=== PATIENT | female | born 2005 | race Caucasian/White ===

== ENCOUNTER 2023-12-10 16:11 | Emergency (ER) | payer BC | END 2023-12-10 17:01 | disposition home or self-care (01) | LOC: CSHERS 16:11 | DX: S01.312D Laceration without foreign body of left ear, subsequent encounter (principal); F17.290 Nicotine dependence, other tobacco product, uncomplicated; V89.2XXD Person injured in unspecified motor-vehicle accident, traffic, subsequent encounter ==